=== PATIENT | male | born 1980 | race Caucasian/White ===

== ENCOUNTER 2018-02-24 12:38 | Inpatient (IN) | payer OTHER ==
[2018-02-24] MEDS: IV NORMAL SALINE 1000ML BAG 1,000 ML IV ×4 (12:35→16:00)
[2018-02-24] MEDS ORDERED: ZIPRASIDONE IM 20 MG VIAL. IM ×2 (12:40→12:45)
[2018-02-24] MEDS: ZIPRASIDONE IM 20 MG VIAL. IM (12:47)
[2018-02-24 13:16] LABS: BASO % 0 % (0-3); EOS % 0 % (0-3); HEMATOCRIT 43.9 % (39.0-53.0); HEMOGLOBIN 14.5 g/dL (13.0-17.5); LYMPH # 2.6 x10^3/uL (1.0-4.8); LYMPH % 12 % (24-48); MEAN CORPUSCULAR HEMOGLOBIN 30 pg (25-35); MEAN CORPUSCULAR HGB CONC 33 g/dL (31-37); MEAN CORPUSCULAR VOLUME 91 fL (79-100); MONO # 1.4 x10^3/uL (0.0-1.1); MONO % 6 % (0-9); NEUT # 18.1 x10^3uL (1.8-7.7); NEUT % 82 % (31-73); PLATELET COUNT 250 x10^3/uL (140-400); RED BLOOD COUNT 4.83 x10^6/uL (4.30-5.70); RED CELL DISTRIBUTION WIDTH 14.3 % (11.5-14.5); WHITE BLOOD COUNT 22.1 x10^3/uL (4.0-11.0)
[2018-02-24 13:25] LABS: ANION GAP 25 (6-14); BLOOD UREA NITROGEN 29 mg/dL (8-26); CALCIUM 10.5 mg/dL (8.5-10.1); CARBON DIOXIDE 16 mmol/L (21-32); CHLORIDE 103 mmol/L (98-107); CREATININE 2.2 mg/dL (0.7-1.3); GFR 33.5; GLUCOSE 242 mg/dL (70-99); POTASSIUM 4.1 mmol/L (3.5-5.1); SODIUM 144 mmol/L (136-145)
[2018-02-24 13:30] LABS: ALK PHOS 113 U/L (46-116); ALT (SGPT) 41 U/L (16-63); AST (SGOT) 61 U/L (15-37); DIRECT BILIRUBIN 0.2 mg/dL (0.0-0.2); MAGNESIUM 2.5 mg/dL (1.8-2.4); TOTAL BILIRUBIN 0.6 mg/dL (0.2-1.0); TOTAL PROTEIN 8.8 g/dL (6.4-8.2)
[2018-02-24 13:32] LABS: ACETAMIN < 2 mcg/ml (10-30); ETHANOL < 10 mg/dL (0-10); SALIC < 2.8 mg/dL (2.8-20.0)
[2018-02-24 13:33] LABS: ADD MAN DIFF? YES
[2018-02-24 13:38] LABS: BILIRUBIN,URINE NEGATIVE (NEG); CLARITY,URINE CLEAR; COLOR,URINE YELLOW; GLUCOSE,URINE 100 mg/dL (NEG); NITRITE,URINE NEGATIVE (NEG); PH,URINE 5.5; PROTEIN,URINE >=300 mg/dL (NEG-TRACE)
[2018-02-24 13:40] LABS: BARBITURATES NEG (NEG); BENZODIAZEPINES NEG (NEG); CANNABINOIDS NEG (NEG); COCAINE NEG (NEG); METHADONE NEG (NEG); OPIATES NEG (NEG); PHENCYCLIDINE NEG (NEG)
[2018-02-24 13:42] LABS: AMPHETAMINE/METHAMPHETAMINE NEG (NEG); ETHANOL, URINE NEG (NEG)
[2018-02-24 13:49] LABS: BACTERIA,URINE 0 /HPF (0-FEW); SPERM,URINE PRESENT /HPF; SQUAMOUS EPITHELIAL CELL,UR FEW /LPF; WBC,URINE RARE /HPF (0-4)
[2018-02-24 13:50] LABS: HYALINE CASTS, URINE FEW /HPF
[2018-02-24 14:27] LABS: TROPONINI < 0.017 ng/mL (0.000-0.055)
[2018-02-24 14:31] LABS: AMMONIA 13 mcmol/L (11-34)
[2018-02-24 14:32] LABS: CKMB INDEX 0.5 % (0-4); CKMB MASS 7.3 ng/mL (0.0-3.6); CREATINE KINASE 1459 U/L (39-308)
[2018-02-24 14:36] LABS: % BANDS 3 % (0-9); % EOS 2 % (0-5); % LYMPHS 13 % (24-48); % MONOS 4 % (0-10); % SEGS 78 % (35-66); PLT ESTIMATE ADEQUATE (ADEQUATE); TOXIC GRANULATION SLIGHT
[2018-02-24 14:37] LABS: LACTIC ACID 1.8 mmol/L (0.4-2.0)
[2018-02-24] MEDS ORDERED: HALOPERIDOL LACTATE 5 MG/ML VIAL. IVP (14:45)
[2018-02-24] MEDS ORDERED: LORazepam 0.5 MG TABLET PO (14:45)
[2018-02-24] MEDS ORDERED: ACETAMINOPHEN 500 MG TABLET PO (15:00)
[2018-02-24] MEDS ORDERED: CALCIUM CARBONATE 500 MG TAB.CHEW PO (15:00)
[2018-02-24 15:15] LABS: BASE EXCESS COOX -3 mmol/L (-3-3); CARBON MONOXIDE 0.3 % (0.0-1.9); HCO3 COOX 24 mmol/L (21-28); METHEMOGLOBIN 0.4 % (0.0-1.9); OXYHEMOGLOBIN 92.4 %; PCO2 COOX 48 mmHg (35-46); PH COOX 7.31 (7.35-7.45); PO2 COOX 80 mmHg (75-108); SAT O2 COOX 93 % (92-99); TOTAL HEMOGLOBIN 12.5 g/dL
[2018-02-24 15:17] LABS: FIO2 COOX 21
[2018-02-24] MEDS: IV RINGERS,LACTATED 1000ML 1,000 ML IV (16:00)
[2018-02-24] MEDS: SODIUM BICARBONATE VIAL 50 MEQ in IV 1/2 NORMAL SALINE 1,000 ML IV (16:19)
[2018-02-25] MEDS: IV NORMAL SALINE 1000ML BAG 1,000 ML IV ×3 (00:08→11:45)
[2018-02-25] MEDS: SODIUM BICARBONATE VIAL 50 MEQ in IV 1/2 NORMAL SALINE 1,000 ML IV (00:08)
[2018-02-25 07:54] LABS: ANION GAP 8 (6-14); BLOOD UREA NITROGEN 18 mg/dL (8-26); CALCIUM 7.4 mg/dL (8.5-10.1); CARBON DIOXIDE 26 mmol/L (21-32); CHLORIDE 110 mmol/L (98-107); CREATINE KINASE 702 U/L (39-308); CREATININE 0.9 mg/dL (0.7-1.3); GFR 93.9; GLUCOSE 77 mg/dL (70-99); SODIUM 144 mmol/L (136-145)
[2018-02-25] MEDS ORDERED: oxyCODONE/APAP 5/325 1 TAB TABLET PO (08:45)
[2018-02-25] MEDS ORDERED: ALPRAZolam 0.5 MG TABLET PO (08:45)
[2018-02-25 08:47] LABS: ADD MAN DIFF? NO
[2018-02-25 09:35] LABS: INR 1.1 (0.8-1.1); PROTHROMBIN TIME PATIENT 13.8 SEC (11.7-14.0)
[2018-02-25 09:56] LABS: BASO % 0 % (0-3); EOS # 0.1 x10^3/uL (0.0-0.7); EOS % 1 % (0-3); HEMATOCRIT 40.2 % (39.0-53.0); HEMOGLOBIN 13.7 g/dL (13.0-17.5); LYMPH % 21 % (24-48); MEAN CORPUSCULAR HEMOGLOBIN 30 pg (25-35); MEAN CORPUSCULAR HGB CONC 34 g/dL (31-37); MEAN CORPUSCULAR VOLUME 90 fL (79-100); MONO # 0.5 x10^3/uL (0.0-1.1); MONO % 6 % (0-9); NEUT % 72 % (31-73); PLATELET COUNT 176 x10^3/uL (140-400); RED CELL DISTRIBUTION WIDTH 14.1 % (11.5-14.5); WHITE BLOOD COUNT 9.8 x10^3/uL (4.0-11.0)
[2018-02-25] MEDS: lamoTRIgine 100 MG TABLET. PO ×2 (10:00→21:53)
[2018-02-25] MEDS: lamoTRIgine 25 MG TABLET. PO (10:19)
[2018-02-25] MEDS: NICOTINE 21MG PATCH. TD (16:17)
[2018-02-25 20:14] LABS: MRSA BY PCR Negative (Negative)
[2018-02-26 07:04] LABS: ADD MAN DIFF? NO
[2018-02-26 07:10] LABS: BASO % 1 % (0-3); EOS # 0.1 x10^3/uL (0.0-0.7); EOS % 3 % (0-3); HEMATOCRIT 37.3 % (39.0-53.0); HEMOGLOBIN 12.8 g/dL (13.0-17.5); LYMPH # 1.8 x10^3/uL (1.0-4.8); LYMPH % 31 % (24-48); MEAN CORPUSCULAR HEMOGLOBIN 30 pg (25-35); MEAN CORPUSCULAR HGB CONC 34 g/dL (31-37); MEAN CORPUSCULAR VOLUME 89 fL (79-100); MONO # 0.4 x10^3/uL (0.0-1.1); MONO % 7 % (0-9); NEUT # 3.3 x10^3uL (1.8-7.7); NEUT % 58 % (31-73); PLATELET COUNT 159 x10^3/uL (140-400); RED CELL DISTRIBUTION WIDTH 13.9 % (11.5-14.5); WHITE BLOOD COUNT 5.6 x10^3/uL (4.0-11.0)
[2018-02-26 07:34] LABS: CREATINE KINASE 603 U/L (39-308)
[2018-02-26] MEDS: lamoTRIgine 100 MG TABLET. PO (08:43)
[2018-02-26] MEDS: NICOTINE 21MG PATCH. TD (08:43)
[2018-02-26 10:25] LABS: HEMOGLOBIN A1C 5.5 % (4.8-5.6)
== END 2018-02-26 13:43 | DRG 91 ==
LOC: 6 SOUTH 02-25 10:51 → ER 12:38 → 1 WEST ICU 14:40
DX: G92 Toxic encephalopathy (principal); N17.0 Acute kidney failure with tubular necrosis; M62.82 Rhabdomyolysis; E87.2 Acidosis; E86.0 Dehydration; E83.41 Hypermagnesemia; E83.52 Hypercalcemia; D72.828 Other elevated white blood cell count; R00.0 Tachycardia, unspecified; S62.332A Displaced fracture of neck of third metacarpal bone, right hand, initial encounter for closed fracture; X58.XXXA Exposure to other specified factors, initial encounter; Y93.89 Activity, other specified; Y92.89 Other specified places as the place of occurrence of the external cause; Y99.8 Other external cause status; F15.10 Other stimulant abuse, uncomplicated; T43.625A Adverse effect of amphetamines, initial encounter
CPT/HCPCS: 36415; 36600; 70450; 71045; 73120; 80048; 80076; 80307; 80329; 81001; 82140; 82550; 82553; 82805; 83036; 83605; 83735; 83930; 84484; 85007; 85025; 85610; 87641; 93005; 96365; 96372; 99291; G0480; G6039; J0690; J2060; J3486; J7030